=== PATIENT | male | born 1940 | race Caucasian/White ===

== ENCOUNTER 2024-01-08 11:17 | Emergency (ER) | payer MEDICARE ==
[~2024-01-08] VITALS: Ht 177.8 cm; Wt 61.9 kg
[2024-01-08 11:17] VITALS: TEMP 97.5
[2024-01-08] MEDS ORDERED: PHEN100C (11:28)
[2024-01-08] MEDS ORDERED: ATOR40TA75 (11:28)
[2024-01-08] MEDS ORDERED: OMEP-173 (11:28)
[2024-01-08 13:14] VITALS: BP 128/66; O2SAT 96
== END 2024-01-08 13:06 | disposition home or self-care (01) ==
LOC: M ED 11:17
DX: R13.10 Dysphagia, unspecified (principal); G40.909 Epilepsy, unspecified, not intractable, without status epilepticus; K21.9 Gastro-esophageal reflux disease without esophagitis; E78.5 Hyperlipidemia, unspecified; Z79.02 Long term (current) use of antithrombotics/antiplatelets; Z79.83 Long term (current) use of bisphosphonates; Z79.899 Other long term (current) drug therapy